=== PATIENT | female | born 1975 | race Two or more races ===

== ENCOUNTER 2017-05-29 07:03 | Outpatient (CLI) | payer OTHER ==
[~2017-05-29 07:03] MED LIST: MOTRIN800 MG PO
== END 2017-05-29 07:21 | disposition home or self-care (01) ==
LOC: MAMO-SONO 07:03
DX: R92.0 Mammographic microcalcification found on diagnostic imaging of breast (principal); Z12.31 Encounter for screening mammogram for malignant neoplasm of breast

== ENCOUNTER 2019-03-21 12:10 | Outpatient (CLI) | payer OTHER | END 2019-03-21 15:09 | disposition home or self-care (01) | LOC: LAB 12:10 | DX: N39.0 Urinary tract infection, site not specified (principal) ==

== ENCOUNTER 2019-04-04 06:52 | Outpatient (CLI) | payer OTHER | END 2019-04-04 06:59 | disposition home or self-care (01) | LOC: LAB 06:52 | DX: N39.0 Urinary tract infection, site not specified (principal) ==

== ENCOUNTER → 2019-04-11 06:20 | Outpatient (CLI) | payer OTHER | END | disposition home or self-care (01) | LOC: LAB 06:20 | DX: N39.0 Urinary tract infection, site not specified (principal) ==

== ENCOUNTER → 2019-04-19 06:59 | Outpatient (CLI) | payer OTHER | END | disposition home or self-care (01) | LOC: LAB 06:59 | DX: N39.0 Urinary tract infection, site not specified (principal) ==

== ENCOUNTER 2019-05-02 09:07 | Outpatient (CLI) | payer OTHER | END 2019-05-02 15:03 | disposition home or self-care (01) | LOC: SONOGRAMA 09:07 | DX: N39.0 Urinary tract infection, site not specified (principal); N18.1 Chronic kidney disease, stage 1 ==

== ENCOUNTER 2019-05-04 07:48 | Outpatient (CLI) | payer OTHER | END 2019-05-04 07:53 | disposition home or self-care (01) | LOC: RAD 07:48 | DX: R05 Cough (principal); R52 Pain, unspecified ==

== ENCOUNTER 2019-05-13 08:58 | Outpatient (CLI) | payer OTHER | END 2019-05-13 09:02 | disposition home or self-care (01) | LOC: LAB 08:58 | DX: J11.1 Influenza due to unidentified influenza virus with other respiratory manifestations (principal); R05 Cough ==